=== PATIENT | male | born 1995 ===

== ENCOUNTER 2023-08-09 17:23 | Emergency (ER) | payer OTHER ==
[2023-08-09] MEDS ORDERED: Bacitracin 1 PK ONE (18:27)
[2023-08-09] MEDS ORDERED: Ibuprofen 200 MG TAB ONE (18:27)
[2023-08-09] MEDS ORDERED: Acetaminophen 325 MG TAB ONE (18:27)
[2023-08-09] MEDS ORDERED: Boostrix 0.5 ML (Tdap) VIAL (>/=7 yrs of age) ONE (18:29)
== END 2023-08-09 18:57 | disposition home or self-care (01) ==
LOC: ERS 17:23
DX: S92.251A Displaced fracture of navicular [scaphoid] of right foot, initial encounter for closed fracture (principal); V89.2XXA Person injured in unspecified motor-vehicle accident, traffic, initial encounter
CPT/HCPCS: 29125; 72125; 90471; 90715